=== PATIENT | female | born 1985 | race Caucasian/White ===

== ENCOUNTER 2017-01-20 03:02 | Emergency (ER) | payer OTHER ==
[2017-01-20 03:13] VITALS: BMI 34.2
[2017-01-20 03:31] LABS: BILIRUBIN,URINE NEGATIVE (NEGATIVE); BLOOD/HEMOGLOBIN,URINE 5+ (NEGATIVE); GLUCOSE, URINE NEGATIVE (NEGATIVE); KETONES,URINE NEGATIVE (NEGATIVE); LEUKOCYTE ESTERASE ,URINE 3+ (NEGATIVE); NITRITES,URINE NEGATIVE (NEGATIVE); PROTEIN,URINE 3+ (NEGATIVE); UROBILINOGEN,URINE NORMAL (NORMAL)
[2017-01-20 03:32] VITALS: BP 113/69
--- NOTE | 2017-01-20 03:38 | DR.PREG ---
HPI - PCP Primary Care Physician: ARIEL - Chief Complaint Chief Complaint:: PT'S STATES PT HAS BEEN HURTING SINCE AROUND 2300. PT STATES SHE IS DUE FEBRUARY 12, 2017. PT DENIES ANY GUSH OF FLUIDS AT THIS TIME. PT IS . 36 5/7 WEEKS. - Source History Provided: Patient - Mode of Arrival Mode of Arrival: Ambulatory - Timing Onset of Chief Complaint: 01/19/17 PMH - PMH Past Medical History: No Past Surgical History: No Surgical History: No History - Family History History of Family Medical Conditions: Yes Family Medical History: Diabetes Mellitus - Social History Do you use any recreational Drugs:: No - infectious screening In the last 2 months have you had wt loss of >10#?: NO Have you had fever, night sweats or hemotysis?: No Have you traveled outside the country in the last 6 months?: No Isolation: Standard PE - Vital Signs Vitals: Temperature 97.6 F Pulse Rate 78 Respiratory Rate 20 Blood Pressure [Right Arm] 112/58 Blood Pressure [Left Arm] 116/64 Blood Pressure 113/69 O2 Sat by Pulse Oximetry 97 - Discharge Plan Condition: Stable - Follow ups/Referrals Follow ups/Referrals: MATTHEW GEORGE [Primary Care Provider] - 3 days - Instructions
[2017-01-20 03:45] LABS: AMNISURE ROM TEST NO MEMBRANES RUPTURE (NO RUPTURE)
[2017-01-20 03:46] LABS: APPEARANCE,URINE HAZY (CLEAR); BACTERIA,URINE 1+ /HPF (NEGATIVE); COLOR,URINE YELLOW (YELLOW); SQUAMOUS EPITHELIAL CELL,UR MODERATE /HPF (NEGATIVE)
[2017-01-20] MEDS ORDERED: ANCEF VIAL 1 GM ONE (04:44)
[2017-01-20] MEDS ORDERED: NS 1000 ML 1,000 ML ONE (04:44)
[2017-01-20] MEDS ORDERED: NS 50 ML IV 50 ML IV ONE (04:44)
[2017-01-20] MEDS: NS 1000 ML 1,000 ML IV ONE (05:07)
[2017-01-20] MEDS: ANCEF VIAL 1 GM 1 GM in NS 50 ML IV + SPIKE MINIBAG* 50 ML IV ONE (05:07)
== END 2017-01-20 06:36 | disposition home or self-care (01) ==
LOC: ER 03:02
DX: O60.14X0 Preterm labor third trimester with preterm delivery third trimester, not applicable or unspecified (principal); Z3A.36 36 weeks gestation of pregnancy
CPT/HCPCS: 81001; 84112; 87086; 87088; 87186; 96365; 99284; A4222; J0690

== ENCOUNTER → 2017-01-31 | Outpatient (CLI) | payer OTHER ==
[2017-01-20 03:32] VITALS: BP 113/69
[2017-01-31 08:54] LABS: BLOOD UREA NITROGEN 7 mg/dL (7-18); CALCIUM 7.9 mg/dL (8.5-10.1); CARBON DIOXIDE 24.6 mmol/L (21-32); CHLORIDE 104 mmol/L (98-107); COR NA(FOR HYPERGLY) 137 mmol/L (136-145); CREATININE 0.67 mg/dL (0.55-1.02); GLUCOSE 111 mg/dL (65-99); SODIUM 137 mmol/L (136-145); eGFR BLACK RACES > 60 (>60); eGFR NON BLACK RACES > 60 (>60)
[2017-01-31 08:56] LABS: BASOPHILS % (AUTO) 0.4 % (0.2-1.0); EOSINOPHILS # (AUTO) 0.1 x10^3/uL (0.0-0.2); EOSINOPHILS % (AUTO) 0.6 % (0.9-2.9); HEMATOCRIT 33.9 % (36.0-47.0); HEMOGLOBIN 11.9 g/dL (12.0-16.0); LYMPHOCYTES # (AUTO) 2.1 X10^3/uL (1.3-2.9); MEAN CORPUSCULAR HEMOGLOBIN 30.7 pg (27.0-34.0); MEAN CORPUSCULAR VOLUME 87.7 fL (80.0-100.0); MONOCYTES # (AUTO) 0.5 x10^3/uL (0.3-0.8); MONOCYTES % (AUTO) 5.4 % (0.0-13.0); NEUTROPHILS # (AUTO) 6.4 x10^3/uL (2.2-4.8); NEUTROPHILS % (AUTO) 70.6 % (42.0-75.0); PLATELET COUNT 132 X10^3/uL (150.0-450.0); RED BLOOD COUNT 3.87 X10^6/uL (3.5-5.4); RED CELL DISTRIBUTION WIDTH 13.6 % (11.6-16.5)
[2017-01-31 08:58] LABS: BILIRUBIN,URINE NEGATIVE (NEGATIVE); BLOOD/HEMOGLOBIN,URINE 1+ (NEGATIVE); GLUCOSE, URINE NEGATIVE (NEGATIVE); KETONES,URINE 1+ (NEGATIVE); LEUKOCYTE ESTERASE ,URINE 3+ (NEGATIVE); NITRITES,URINE NEGATIVE (NEGATIVE); PH,URINE 6.5 (5.0 - 8.0); PROTEIN,URINE 1+ (NEGATIVE); UROBILINOGEN,URINE 1+ (NORMAL)
[2017-01-31 09:09] LABS: APPEARANCE,URINE CLEAR (CLEAR); COLOR,URINE DARK YELLOW (YELLOW)
[2017-01-31 09:10] LABS: AMORPHOUS SEDIMENT,UR 1+ /HPF (NEGATIVE); BACTERIA,URINE TRACE /HPF (NEGATIVE); MUCUS,URINE FEW /HPF (NEGATIVE); SQUAMOUS EPITHELIAL CELL,UR MANY /HPF (NEGATIVE)
== END ==
LOC: LAB 08:01
PROVIDERS: ATTEND Specialist
DX: Z01.818 Encounter for other preprocedural examination (principal); Z01.812 Encounter for preprocedural laboratory examination; Z34.83 Encounter for supervision of other normal pregnancy, third trimester
CPT/HCPCS: 36415; 80048; 81001; 85025; 86592; 86850; 86900; 86901

== ENCOUNTER 2017-02-05 06:51 | Inpatient (IN) | payer OTHER ==
[~2017-02-05 06:51] MED LIST: D5 1/2 NS 1000 ML 1,000 ML IV ONE; D5 1/2 NS 1000ML W PITOCIN 20 U/L 1,000 ML IV ONE; D5LR 1000ML W PITOCIN 10 U/L 1,000 ML IV ONE; FENTANYL INJ 100 mcg ONE; LR 1000 ML IV 0 ML IV ONE; NAROPIN EPIDURAL 0.2% + FENTANYL 90MCG 0 ML EPI ONE; PITOCIN ONE
[2017-02-05] MEDS ORDERED: PHENERGAN INJ 25 MG IV PRN ×3 (07:15→12:47)
[2017-02-05] MEDS ORDERED: D5 1/2 NS 1000 ML 1,000 ML IV SCH (07:15)
[2017-02-05] MEDS ORDERED: MORPHINE SULFATE INJ 2 MG IVP PRN (07:15)
[2017-02-05] MEDS ORDERED: PITOCIN IVP ONE (07:15)
[2017-02-05] MEDS ORDERED: REGLAN INJ 10 MG VIAL IVP PRN ×2 (07:15→12:47)
[2017-02-05] MEDS ORDERED: PITOCIN 10 UNITS in D5 LR 1000 ML 1,000 ML IV PRN (07:15)
--- NOTE | 2017-02-05 07:32 | DR.OB ---
OB Quick Note - Assessment/Plan Assessment/Plan: L&D 02/05/17 at 7:30am S-No complaint. O-Afebrile,VSS OPB=825 with good LTV, +accel, no decel. CTX=none CVX=3cm/thick/-1/VTX AROM with clear fluid. IUPC and FSE placed. 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
[2017-02-05] MEDS ORDERED: NUBAIN INJ 10 ONE ×2 (09:28→11:36)
[2017-02-05] MEDS: NUBAIN INJ 200 MG VIAL MULTIDOSE IVP PRN ×2 (09:28→11:30)
[2017-02-05] MEDS ORDERED: MOTRIN TAB 800 MG PO PRN (12:20)
--- NOTE | 2017-02-05 12:28 | DR.OB ---
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 Head delivered over intact perineum. No nuchal cord. Nose and mouth bulb suctioned. Body delivered over intact perineum. Cord clamped x 2 and cut. handed to attendant. Placenta delivered spontaneously / intact / 3 vessel cord. No CVX / vaginal / perineal tears. Viable male infant, VTX/OA, wt=8'7" and 7/9, stable to NBN. Mother stable to RR. [id number].
[2017-02-05] MEDS ORDERED: DERMOPLAST SPRAY TOP PRN (12:47)
[2017-02-05] MEDS ORDERED: ADACEL TDaP IM ONE (12:47)
[2017-02-05] MEDS ORDERED: AMBIEN PO PRN (12:47)
[2017-02-05] MEDS ORDERED: MILK OF MAGNESIA PO PRN (12:47)
[2017-02-05] MEDS ORDERED: HYPERRHO S/D (or RHOGAM) IM PRN (12:47)
[2017-02-05] MEDS ORDERED: D5 1/2 NS 1000 ML 1,000 ML with PITOCIN 20 UNITS IV SCH ×4 (13:00)
[2017-02-05] MEDS: ZANTAC PO SCH (20:24)
[2017-02-05] MEDS: MOTRIN TAB 800 MG PO PRN (20:24)
[2017-02-06 05:45] LABS: HEMOGLOBIN 11.5 g/dL (12.0-16.0)
[2017-02-06] MEDS: ZANTAC PO SCH (08:24)
[2017-02-06] MEDS: MOTRIN TAB 800 MG PO PRN (08:24)
[2017-02-06] MEDS ORDERED: CELEXA PO SCH ×2 (09:00)
[2017-02-06] MEDS ORDERED: PRENATAL PLUS PO SCH (09:00)
[2017-02-06 11:52] VITALS: BP 107/52
== END 2017-02-06 14:24 | disposition home or self-care (01) | DRG 774 ==
LOC: LD 06:51 → MED/SURG 12:21
PROVIDERS: ADMIT Specialist; ATTEND Specialist
PROC: 10E0XZZ Delivery of Products of Conception, External Approach (ICD-10-PCS; principal; 2017-02-05)
PROC: 10907ZC Drainage of Amniotic Fluid, Therapeutic from Products of Conception, Via Natural or Artificial Opening (ICD-10-PCS; 2017-02-05)
PROC: 3E033VJ Introduction of Other Hormone into Peripheral Vein, Percutaneous Approach (ICD-10-PCS; 2017-02-05)
PROC: 3E0234Z Introduction of Serum, Toxoid and Vaccine into Muscle, Percutaneous Approach (ICD-10-PCS; 2017-02-05)
PROC: 3E0334Z Introduction of Serum, Toxoid and Vaccine into Peripheral Vein, Percutaneous Approach (ICD-10-PCS; 2017-02-05)
DX: O99.342 Other mental disorders complicating pregnancy, second trimester (principal); Z37.0 Single live birth; O98.311 Other infections with a predominantly sexual mode of transmission complicating pregnancy, first trimester; O99.830 Other infection carrier state complicating pregnancy; Z22.8 Carrier of other infectious diseases; O36.0930 Maternal care for other rhesus isoimmunization, third trimester, not applicable or unspecified; Z23 Encounter for immunization
CPT/HCPCS: 36415; 85014; 85018; 85461; 86850; 86900; 86901; A4222; S0197; J2300; J2590; J2790; J3010; J7042; J7120

== ENCOUNTER 2017-04-17 10:26 | Emergency (ER) | payer SELFPAY ==
[2017-04-17 10:27] VITALS: BP 107/52
[2017-04-17 10:33] VITALS: BMI 30.7
[2017-04-17 11:17] LABS: BILIRUBIN,URINE NEGATIVE (NEGATIVE); BLOOD/HEMOGLOBIN,URINE 5+ (NEGATIVE); GLUCOSE, URINE NEGATIVE (NEGATIVE); KETONES,URINE NEGATIVE (NEGATIVE); LEUKOCYTE ESTERASE ,URINE 1+ (NEGATIVE); NITRITES,URINE NEGATIVE (NEGATIVE); PROTEIN,URINE NEGATIVE (NEGATIVE); UROBILINOGEN,URINE NORMAL (NORMAL)
[2017-04-17 11:17] LABS: BASOPHILS % (AUTO) 0.7 % (0.2-1.0); EOSINOPHILS # (AUTO) 0.1 x10^3/uL (0.0-0.2); EOSINOPHILS % (AUTO) 1.7 % (0.9-2.9); HEMATOCRIT 38.9 % (36.0-47.0); HEMOGLOBIN 13.4 g/dL (12.0-16.0); LYMPHOCYTES # (AUTO) 2.7 X10^3/uL (1.3-2.9); LYMPHOCYTES % (AUTO) 37.3 % (21.0-51.0); MEAN CORPUSCULAR HEMOGLOBIN 29.5 pg (27.0-34.0); MEAN CORPUSCULAR HGB CONC 34.3 g/dL (33.0-35.0); MEAN PLATELET VOLUME 9.5 fL (7.4-11.0); MONOCYTES # (AUTO) 0.5 x10^3/uL (0.3-0.8); NEUTROPHILS # (AUTO) 3.9 x10^3/uL (2.2-4.8); NEUTROPHILS % (AUTO) 53.3 % (42.0-75.0); PLATELET COUNT 198 X10^3/uL (150.0-450.0); RED BLOOD COUNT 4.53 X10^6/uL (3.5-5.4); RED CELL DISTRIBUTION WIDTH 13.1 % (11.6-16.5); WHITE BLOOD COUNT 7.3 X10^3/uL (3.6-10.0)
[2017-04-17 11:27] LABS: APPEARANCE,URINE CLEAR (CLEAR); BACTERIA,URINE TRACE /HPF (NEGATIVE); COLOR,URINE YELLOW (YELLOW); RBC,URINE 25-30 /HPF (NEGATIVE); SQUAMOUS EPITHELIAL CELL,UR FEW /HPF (NEGATIVE)
[2017-04-17 11:29] LABS: SERUM PREGNANCY TEST, QUAL NEGATIVE <10 mIU/mL
[2017-04-17 11:32] LABS: ALANINE AMINOTRANSFERASE 59 Units/L (12-78); ALKALINE PHOSPHATASE 82 Units/L (46-116); ASPARTATE AMINO TRANSFERASE 30 Units/L (15-37); BLOOD UREA NITROGEN 8 mg/dL (7-18); CARBON DIOXIDE 29.9 mmol/L (21-32); CHLORIDE 103 mmol/L (98-107); CREATININE 0.85 mg/dL (0.55-1.02); SODIUM 139 mmol/L (136-145); TOTAL PROTEIN 7.8 g/dL (6.4-8.2); eGFR BLACK RACES > 60 (>60); eGFR NON BLACK RACES > 60 (>60)
--- NOTE | 2017-04-17 11:57 | DR.GENAD ---
HPI - PCP Primary Care Physician: nfd - Complaint/Symptoms Chief Complaint Doctors Comments: Patient presents with complaint of starting her period yesterday. She gave to a 8lbs 7oz baby on February, started controll pills on 02/08/17. She is concerned that her period started on yesterday. She denies any abdominal pain. Her labs are normal,HCG ngeative. She denies excessive menstrual flow. There is no cramping. Chief Complaint:: " have not had a period since march 08, now i woke up this morning bleeding" - Source History Provided: Patient - Mode of Arrival Mode of Arrival: Ambulatory - Timing Onset of Chief Complaint: 04/17/17 PMH - PMH Past Medical History: No Past Surgical History: No Surgical History: No History - Family History History of Family Medical Conditions: Yes Family Medical History: Diabetes Mellitus - Social History Does patient currently use any type of tobacco product: No Have you used tobacco products in the last 12 months: No Type of Tobacco Use: None Does any household member use tobacco: No Alcohol Use: None Do you use any recreational Drugs:: No Lives With: Family Lives Where: Home - infectious screening In the last 2 months have you had wt loss of >10#?: NO Have you had fever, night sweats or hemotysis?: No Have you traveled outside the country in the last 6 months?: No Isolation: Standard ROS - Review of Systems Eyes: No Symptoms Reported ENTM: No Symptoms Reported Respiratoy: No Symptoms Reported Cardiovascular: No Symptoms Reported Gastrointestinal/Abdominal: No Symptoms Reported Genitourinary: No Symptoms Reported Neurological: No Symptoms Reported Musculoskeletal: No Symptoms Reported Integumentary: No Symptoms Reported Hematologic/Lymphatic: No Symptoms Reported Endocrine: No Symptoms Reported Psychiatric: No Symptoms Reported All Other Systems: Reviewed and Negative PE - Vital Signs Vitals: Temperature 98.1 F Pulse Rate 78 Respiratory Rate 18 Blood Pressure [Right Arm] 107/52 Blood Pressure [Left Arm] 120/56 Blood Pressure 107/52 O2 Sat by Pulse Oximetry 99 - General Limitations: No Limitations General Appearance: Alert, In No Apparent Distress - Head Head Exam: Normal Inspection, Atraumatic - Eyes Eye exam: Normal Appearance, PERRL, EOMI - ENT ENT Exam: Normal Exam External Ear Exam: Normal External Inspection TM/Canal Exam: Bilateral Normal Nose Exam: Normal Nose Exam Mouth Exam: Normal Inspection Throat Exam: Normal Inspection - Neck Neck Exam: Normal Inspection - Chest Chest Inspection: Normal Inspection - Respiratory Respiratory Exam: Normal Lung Sounds Bilat Respiratory Exam: Bilateral Clear to Auscultation - Cardiovascular Cardiovascular Exam: Regular Rate, Normal Rhythm - Abdominal Exam Abdominal Exam: Normal Inspection, Normal Bowel Sounds Abdominal Tenderness: negative: RUQ, RLQ, LUQ, LLQ, Epigastrium, Suprapubic, Diffuse, Mild, Moderate, Severe, Other - Extremities Extremities Exam: Normal Inspection - Back Back Exam: Normal Inspection - Neurologic Neurological Exam: Alert, Oriented X3, CN II-XII Intact - Psychiatric Psychiatric Exam: Normal Affect - Skin Skin Exam: Warm, Dry, Intact Course - Reevaluation 1st: Unchanged ROR - Labs Reviewed Result Diagrams: 04/17/17 11:10 04/17/17 11:10 Laboratory: WBC 7.3 X10^3/uL (3.6-10.0) 04/17/17 11:10 RBC 4.53 X10^6/uL (3.5-5.4) 04/17/17 11:10 Hgb 13.4 g/dL (12.0-16.0) 04/17/17 11:10 Hct 38.9 % (36.0-47.0) 04/17/17 11:10 MCV 86.0 fL (80.0-100.0) 04/17/17 11:10 MCH 29.5 pg (27.0-34.0) 04/17/17 11:10 MCHC 34.3 g/dL (33.0-35.0) 04/17/17 11:10 RDW 13.1 % (11.6-16.5) 04/17/17 11:10 Plt Count 198 X10^3/uL (150.0-450.0) 04/17/17 11:10 MPV 9.5 fL (7.4-11.0) 04/17/17 11:10 Neut % 53.3 % (42.0-75.0) 04/17/17 11:10 Lymph % 37.3 % (21.0-51.0) 04/17/17 11:10 [place] % 7.0 % (0.0-13.0) 04/17/17 11:10 Eos % 1.7 % (0.9-2.9) 04/17/17 11:10 Baso % 0.7 % (0.2-1.0) 04/17/17 11:10 Neut # 3.9 x10^3/uL (2.2-4.8) 04/17/17 11:10 Lymph # 2.7 X10^3/uL (1.3-2.9) 04/17/17 11:10 [place] # 0.5 x10^3/uL (0.3-0.8) 04/17/17 11:10 Eos # 0.1 x10^3/uL (0.0-0.2) 04/17/17 11:10 Baso # 0.0 X10^3/uL (0.0-0.1) 04/17/17 11:10 Absolute Nucleated RBC 0.1 /100WBC 04/17/17 11:10 Sodium 139 mmol/L (136-145) 04/17/17 11:10 Corrected Sodium TNP 04/17/17 11:10 Potassium 4.1 mmol/L (3.5-5.1) 04/17/17 11:10 Chloride 103 mmol/L (98-107) 04/17/17 11:10 Carbon Dioxide 29.9 mmol/L (21-32) 04/17/17 11:10 BUN 8 mg/dL (7-18) 04/17/17 11:10 Creatinine 0.85 mg/dL (0.55-1.02) 04/17/17 11:10 Est GFR (MDRD) Af Amer > 60 (>60) 04/17/17 11:10 Est GFR (MDRD) Non-Af > 60 (>60) 04/17/17 11:10 Glucose 70 mg/dL (65-99) 04/17/17 11:10 Calcium 9.0 mg/dL (8.5-10.1) 04/17/17 11:10 Corrected Calcium TNP 04/17/17 11:10 Total Bilirubin 0.30 mg/dL (0.2-1.0) 04/17/17 11:10 AST 30 Units/L (15-37) 04/17/17 11:10 ALT 59 Units/L (12-78) 04/17/17 11:10 Alkaline Phosphatase 82 Units/L (46-116) 04/17/17 11:10 Total Protein 7.8 g/dL (6.4-8.2) 04/17/17 11:10 Albumin 4.0 g/dL (3.4-5.0) 04/17/17 11:10 Globulin 3.8 g/dL (2.5-4.5) 04/17/17 11:10 Albumin/Globulin Ratio 1.1 Ratio (1.1-2.1) 04/17/17 11:10 HCG, Qual Negative <10 mIU/mL 04/17/17 11:10 Specimen Type Clean catch urine 04/17/17 11:12 Urine Color Yellow (YELLOW) 04/17/17 11:12 Urine Appearance Clear (CLEAR) 04/17/17 11:12 Urine pH 7.0 (5.0 - 8.0) 04/17/17 11:12 Ur Specific [place] 1.010 (1.000-1.030) 04/17/17 11:12 Urine Protein Negative (NEGATIVE) 04/17/17 11:12 Urine Glucose (UA) Negative (NEGATIVE) 04/17/17 11:12 Urine Ketones Negative (NEGATIVE) 04/17/17 11:12 Urine Occult Blood 5+ (NEGATIVE) 04/17/17 11:12 Urine Nitrite Negative (NEGATIVE) 04/17/17 11:12 Urine Bilirubin Negative (NEGATIVE) 04/17/17 11:12 Urine Urobilinogen Normal (NORMAL) 04/17/17 11:12 Ur Leukocyte Esterase 1+ (NEGATIVE) 04/17/17 11:12 Urine RBC 25-30 /HPF (NEGATIVE) 04/17/17 11:12 Urine WBC 0-3 /HPF (NEGATIVE) 04/17/17 11:12 Ur Squamous Epith Cells Few /HPF (NEGATIVE) 04/17/17 11:12 Urine Bacteria Trace /HPF (NEGATIVE) 04/17/17 11:12 Ur Culture Indicated? No/not indicated 04/17/17 11:12 - Diagnosis Discharge Problem: Normal menstrual period - Discharge Plan Condition: Stable - Follow ups/Referrals Follow ups/Referrals: NFD,None [Primary Care Provider] - 3 days - Instructions
== END 2017-04-17 12:11 | disposition home or self-care (01) ==
LOC: ER 10:40
DX: N93.9 Abnormal uterine and vaginal bleeding, unspecified (principal)
CPT/HCPCS: 36415; 80053; 81001; 84703; 85025; 99282

== ENCOUNTER 2018-03-19 06:22 | Inpatient (IN) ==
[2018-03-19] MEDS ORDERED: LR 1000 ML IV 1,000 ML IV ONE (06:32)
[2018-03-19] MEDS ORDERED: PITOCIN ONE (06:42)
[2018-03-19] MEDS ORDERED: D5LR 1L W PITOCIN 10 UNITS/L 10 UNITS/1,000 ML BAG IV ONE (06:42)
[2018-03-19] MEDS ORDERED: PHENERGAN INJ 25 MG IV PRN ×2 (07:11→07:18)
[2018-03-19] MEDS ORDERED: REGLAN INJ 10 MG VIAL IVP PRN (07:11)
[2018-03-19] MEDS ORDERED: PITOCIN IVP ONE (07:11)
[2018-03-19] MEDS ORDERED: NUBAIN INJ 200 MG VIAL MULTIDOSE IVP PRN (07:11)
[2018-03-19] MEDS ORDERED: D5 1/2 NS 1000 ML 1,000 ML IV SCH (07:11)
[2018-03-19] MEDS ORDERED: D5LR 1L W PITOCIN 10 UNITS/L 10 UNITS/1,000 ML BAG IV PRN (07:11)
[2018-03-19] MEDS ORDERED: MORPHINE SULFATE INJ 2 MG INJ IVP PRN (07:11)
--- NOTE | 2018-03-19 07:26 | DR.OB ---
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 Head delivered over intact perineum. No nuchal cord. Nose and mouth bulb suctioned. Body delivered over intact perineum. Cord clamped x 2 and cut. handed to attendants. Placenta delivered spontaneously / intact / 3 vessel cord. No CVX / vaginal / perineal tears. Viable male infant, VTX/OA, wt=6'14" and 8/8, stable to NBN. Mother stable to RR. [id number].
[2018-03-19] MEDS: D5 1/2 NS 1000 ML 1,000 ML with PITOCIN 20 UNITS IV SCH ×4 (08:00→18:08)
[2018-03-19] MEDS ORDERED: AMBIEN PO PRN (08:22)
[2018-03-19] MEDS ORDERED: MILK OF MAGNESIA PO PRN (08:22)
[2018-03-19] MEDS ORDERED: DERMOPLAST SPRAY TOP PRN (08:22)
[2018-03-19] MEDS ORDERED: ADACEL or BOOSTRIX TDaP VACCINE IM ONE (08:22)
[2018-03-19] MEDS ORDERED: HYPERRHO S/D (or RHOGAM) IM PRN (08:22)
[2018-03-19] MEDS: MOTRIN TAB 800 MG PO PRN ×2 (09:48→22:04)
[2018-03-19] MEDS: ZANTAC PO SCH ×2 (09:49→23:21)
[2018-03-19] MEDS: PRENATAL PLUS PO SCH (09:49)
[2018-03-19] MEDS: CELEXA PO SCH (09:50)
[2018-03-20 05:26] LABS: HEMATOCRIT 34.4 % (36.0-47.0); HEMOGLOBIN 11.9 g/dL (12.0-16.0)
[2018-03-20] MEDS: MOTRIN TAB 800 MG PO PRN ×2 (07:42→15:35)
[2018-03-20] MEDS: CELEXA PO SCH (08:47)
[2018-03-20] MEDS: PRENATAL PLUS PO SCH (08:47)
[2018-03-20] MEDS: ZANTAC PO SCH (08:48)
[2018-03-21] MEDS: PRENATAL PLUS PO SCH (09:14)
[2018-03-21] MEDS: CELEXA PO SCH (09:14)
[2018-03-21] MEDS: ZANTAC PO SCH (09:14)
[2018-03-21 12:24] VITALS: BP 100/56
== END 2018-03-21 13:10 | disposition home or self-care (01) | DRG 774 ==
LOC: LD 06:22 → MED/SURG 08:25
PROVIDERS: ADMIT Specialist; ATTEND Specialist
DX: O36.0930 Maternal care for other rhesus isoimmunization, third trimester, not applicable or unspecified; O99.834 Other infection carrier state complicating childbirth; F41.9 Anxiety disorder, unspecified; Z3A.39 39 weeks gestation of pregnancy; O99.344 Other mental disorders complicating childbirth; O26.893 Other specified pregnancy related conditions, third trimester; Z37.0 Single live birth
CPT/HCPCS: 36415; 80048; 80307; 81001; 85014; 85018; 85025; 86592; 86850; 86900; 86901; 87086; 90715; A4222; S0197; G0434; J2590; J7120; S5010